=== PATIENT | male | born 1975 | race Caucasian/White ===

== ENCOUNTER 2020-01-11 22:51 | Emergency (ER) | payer SELFPAY ==
[2020-01-11] MEDS ORDERED: Sodium Chloride 0.9% 1,000 ML IV ONE ×2 (23:04→23:21)
[2020-01-11] MEDS ORDERED: MVI, Adult with Vitamin K 10 ML, Thiamine 100 MG, Folic Acid 1 MG in Sodium Chloride 0.... IV ONE ×4 (23:21)
--- NOTE | 2020-01-11 23:21 | EDM.PDOC ---
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 Patient not talking while in the ER Onset: Today Duration: Hour(s):, Day(s): Location: Reports: Abdomen Severity: Moderate Improves with: Reports: None Worsens with: Reports: None Associated Symptoms: Reports: No Other Symptoms, Nausea/Vomiting - Related Data Allergies Allergy/AdvReac Type Severity Reaction Status Date / Time Unable to Assess Allergy Unverified 01/11/20 23:08 Home Meds: Home Meds . [Unable to Verify Home Med List] 01/11/20 [History] ED ROS GENERAL - Review of Systems Review Of Systems: See Below Constitutional: Reports: No Symptoms HEENT: Reports: No Symptoms Respiratory: Reports: No Symptoms Cardiovascular: Reports: No Symptoms Endocrine: Reports: No Symptoms GI/Abdominal: Reports: No Symptoms : Reports: No Symptoms Musculoskeletal: Reports: No Symptoms Skin: Reports: No Symptoms Neurological: Reports: No Symptoms Psychiatric: Reports: No Symptoms Hematologic/Lymphatic: Reports: No Symptoms Immunologic: Reports: No Symptoms - Physical Exam Exam: See Below Exam Limited By: No Limitations General Appearance: Alert, WD/WN, No Apparent Distress Eye Exam: Bilateral Eye: Abnormal EOM, Abnormal Pupil, Normal Fundi, Normal Inspection Ears: Normal External Exam, Normal Canal, Hearing Grossly Normal, Normal TMs Nose: Normal Inspection, Normal Mucosa, No Blood Throat/Mouth: Normal Inspection, Normal Lips, Normal Teeth, Normal Gums, Normal Oropharynx, Normal Voice, No Airway Compromise Head Exam: Atraumatic, Normocephalic Neck: Normal Inspection, Supple, Non-Tender Respiratory/Chest: No Respiratory Distress, Lungs Clear, Normal Breath Sounds, No Accessory Muscle Use, Chest Non-Tender Cardiovascular: Normal Peripheral Pulses, Regular Rate, Rhythm, No Edema, No Gallop, No JVD, No Murmur GI/Abdominal: Normal Bowel Sounds, Soft, Non-Tender, No Organomegaly, No Distention, No Abnormal Bruit Neuro Exam (Abbreviated): Alert, Oriented, CN II-XII Intact, Normal Cognition, Normal Reflexes Back Exam: Normal Inspection, Full Range of Motion Extremities: Normal Inspection, Normal Range of Motion, Non-Tender Psychiatric: Normal Affect, Normal Mood Skin Exam: Warm, Dry, Intact, Normal Color, No Rash Course - Vital Signs Text/Narrative:: 44-year-old male initially intoxicated not wanting to talk. Patient's now states he feels much better and was just drinking and now wants to go home. Patient's vitals shows slight tachycardia 1 20-1 05. Patient awake alert and oriented. Patient's LFTs are elevated other than that patient appears to be in no acute distress. Will discharge the patient with acute alcohol intoxication. Last Recorded V/S: Last Vital Signs Temp 96.5 F L 01/11/20 22:55 Pulse 114 H 01/11/20 22:55 Resp 19 01/11/20 22:55 BP 148/100 H 01/11/20 22:55 Pulse Ox 96 01/11/20 22:55 - Orders/Labs/Meds Orders: Active Orders 24 hr Category Date Time Status MVI, Adult with Vitamin K [Infuvite Adult] 10 ml Med 01/11/20 23:21 Active Thiamine [Vitamin B-1] 100 mg Folic Acid 1 mg Sodium Chloride 0.9% [Normal Saline] 1,000 ml IV ONETIME Medication Orders Multivitamins/Minerals 10 ml/Thiamine HCl 100 mg/ Folic Acid 1 mg/ Sodium Chloride 1,011.2 mls @ 250 mls/hr IV ONETIME ONE Stop: 01/12/20 03:23 Last Admin: 01/12/20 00:38 Dose: 250 mls/hr Labs: Laboratory Tests 01/11/20 01/11/20 Range/Units 23:30 23:30 WBC 7.44 (4.0-11.0) K/uL RBC 4.92 (4.50-5.90) M/uL Hgb 16.5 (13.0-17.0) g/dL Hct 48.8 (38.0-50.0) % MCV 99.2 H (80.0-98.0) fL MCH 33.5 H (27.0-32.0) pg MCHC 33.8 (31.0-37.0) g/dL RDW Std Deviation 47.6 (28.0-62.0) fl RDW Coeff of Kenny 13 (11.0-15.0) % Plt Count 229 (150-400) K/uL MPV 9.30 (7.40-12.00) fL Neut % (Auto) 40.7 L (48.0-80.0) % Lymph % (Auto) 51.2 H (16.0-40.0) % [place] % (Auto) 6.5 (0.0-15.0) % Eos % (Auto) 1.5 (0.0-7.0) % Baso % (Auto) 0.1 (0.0-1.5) % Neut # (Auto) 3.0 (1.4-5.7) K/uL Lymph # (Auto) 3.8 H (0.6-2.4) K/uL [place] # (Auto) 0.5 (0.0-0.8) K/uL Eos # (Auto) 0.1 (0.0-0.7) K/uL Baso # (Auto) 0.0 (0.0-0.1) K/uL Nucleated RBC % 0.0 /100WBC Nucleated RBCs # 0 K/uL Sodium 147 (136-148) mmol/L Potassium 3.8 (3.5-5.1) mmol/L Chloride 108 H (98-107) mmol/L Carbon Dioxide 23.7 (21.0-32.0) mmol/L BUN 7 (7.0-18.0) mg/dL Creatinine 0.9 (0.8-1.3) mg/dL Est Cr Clr Drug Dosing TNP Estimated GFR (MDRD) > 60.0 ml/min Glucose 160 H (74-106) mg/dL Calcium 8.4 L (8.5-10.1) mg/dL Total Bilirubin 0.3 (0.2-1.0) mg/dL AST 233 H (15-37) IU/L ALT 371 H (14-63) IU/L Alkaline Phosphatase 176 H (46-116) U/L Troponin I < 0.050 (0.000-0.056) ng/mL Total Protein 7.6 (6.4-8.2) g/dL Albumin 4.3 (3.4-5.0) g/dL Globulin 3.3 (2.6-4.0) g/dL Albumin/Globulin Ratio 1.3 (0.9-1.6) Meds: Medications Generic Name Dose Route Start Last Admin Trade Name Fernanda PRN Reason Stop Dose Admin Multivitamins/Minerals 10 ml/ 1,011.2 mls @ 250 mls/hr 01/11/20 23:21 00:38 Thiamine HCl 100 mg/ Folic IV 01/12/20 03:23 250 mls/hr Acid 1 mg/ Sodium Chloride ONETIME ONE Administration Discontinued Medications Generic Name Dose Route Start Last Admin Trade Name Fernanda PRN Reason Stop Dose Admin Sodium Chloride 1,000 mls @ 999 mls/hr 01/11/20 23:04 01/11/20 23:09 Normal Saline IV 01/12/20 00:04 999 mls/hr .BOLUS ONE Administration Sodium Chloride 1,000 mls @ 1,000 mls/hr 01/11/20 23:21 Normal Saline IV 01/12/20 00:20 .Bolus ONE Departure - Departure Time of Disposition: 00:43 Disposition: Home, Self-Care 01 Condition: Good Clinical Impression: Alcohol abuse - Discharge Information Instructions: Alcohol Use Disorder, Binge-Drinking Information, Adult Forms: ED Department Discharge Sepsis Event Note - Evaluation Sepsis Screening Result: No Definite Risk - Focused Exam Vital Signs: Vital Signs Temp Pulse Resp BP Pulse Ox 01/11/20 22:55 96.5 F L 114 H 19 148/100 H 96 Date Exam was Performed: 01/12/20 Time Exam was Performed: 00:40 - My Orders Last 24 Hours: My Active Orders 01/11/20 23:21 MVI, Adult with Vitamin K [Infuvite Adult] 10 ml Thiamine [Vitamin B-1] 100 mg Folic Acid 1 mg Sodium Chloride 0.9% [Normal Saline] 1,000 ml IV ONETIME - Assessment/Plan Last 24 Hours: My Active Orders 01/11/20 23:21 MVI, Adult with Vitamin K [Infuvite Adult] 10 ml Thiamine [Vitamin B-1] 100 mg Folic Acid 1 mg Sodium Chloride 0.9% [Normal Saline] 1,000 ml IV ONETIME
[2020-01-12 00:04] LABS: BLOOD UREA NITROGEN,BUN 7 mg/dL (7.0-18.0); CARBON DIOXIDE,CO2 23.7 mmol/L (21.0-32.0); CHLORIDE,CL 108 mmol/L (98-107); GLUCOSE RANDOM 160 mg/dL (74-106); POTASSIUM,K 3.8 mmol/L (3.5-5.1); SODIUM,NA 147 mmol/L (136-148)
== END 2020-01-12 00:50 | disposition home or self-care (01) ==
LOC: MW.ED 22:51
DX: F10.129 Alcohol abuse with intoxication, unspecified (principal)
CPT/HCPCS: 36415; 80053; 84484; 85025; 96374; 99284; J3411; J7030; 99283

== ENCOUNTER 2022-04-13 12:20 | Emergency (ER) | payer SELFPAY ==
[2022-04-13] MEDS ORDERED: Sodium Chloride 0.9% 1,000 ML IV ONE (12:37)
[2022-04-13] MEDS ORDERED: LORazepam 2 MG/ML SDV IVPUSH ONE ×2 (12:37→13:40)
[2022-04-13 13:27] LABS: BLOOD UREA NITROGEN,BUN 7 mg/dL (7.0-18.0); CARBON DIOXIDE,CO2 25.9 mmol/L (21.0-32.0); CHLORIDE,CL 101 mmol/L (98-107); ESTIMATED GFR 93 mL/min (>60); GLUCOSE RANDOM 157 mg/dL (74-106); POTASSIUM,K 3.6 mmol/L (3.5-5.1); SODIUM,NA 142 mmol/L (136-148)
[2022-04-13] MEDS: Sodium Chloride 0.9% 1,000 ML IV ONE ×2 (13:46→14:27)
== END 2022-04-13 14:28 | disposition home or self-care (01) ==
LOC: MW.ED 12:20
DX: F10.10 Alcohol abuse, uncomplicated (principal); I10 Essential (primary) hypertension; Z79.899 Other long term (current) drug therapy
CPT/HCPCS: 36415; 80053; 80307; 85025; 96361; 96374; 96376; 99284; J2060; J7030

== ENCOUNTER 2022-11-13 20:12 | Emergency (ER) | payer OTHER, MEDICAID ==
[2022-11-13] MEDS ORDERED: Sodium Chloride 0.9% 10 ML Syringe FLUSH PRN (20:36)
[2022-11-13] MEDS ORDERED: Sodium Chloride 0.9% 2.5 ML Syringe FLUSH PRN (20:36)
[2022-11-13] MEDS ORDERED: Folic Acid 1 MG/0.2 ML UD Syringe IV STA (20:37)
[2022-11-13] MEDS ORDERED: Thiamine 200 MG/2 ML MDV IVPUSH ONE (20:37)
[2022-11-13] MEDS ORDERED: Sodium Chloride 0.9% 1,000 ML IV ONE (20:44)
[2022-11-13] MEDS ORDERED: Ondansetron 4 MG/2 ML SDV IVPUSH ONE (21:26)
[2022-11-13 21:31] LABS: CARBON DIOXIDE,CO2 21.8 mmol/L (21.0-32.0); POTASSIUM,K 4.1 mmol/L (3.5-5.1)
[2022-11-13 22:08] LABS: CORONAVIRUS COVID-19 NAA NEGATIVE (NEGATIVE); INFLUENZA A NAA NEGATIVE (NEGATIVE); INFLUENZA B NAA NEGATIVE (NEGATIVE)
[2022-11-13] MEDS ORDERED: LORazepam 2 MG/ML SDV IVPUSH ONE (22:48)
== END 2022-11-13 23:10 | disposition home or self-care (01) ==
LOC: MW.ED 20:12
DX: F10.10 Alcohol abuse, uncomplicated (principal); I10 Essential (primary) hypertension; Z79.899 Other long term (current) drug therapy; Z20.822 Contact with and (suspected) exposure to COVID-19
CPT/HCPCS: 0240U; 36415; 80053; 80307; 83735; 85025; 96361; 96374; 96375; 99284; J2060; J3411; J3490; J7030

== ENCOUNTER 2023-02-21 11:21 | Emergency (ER) | payer OTHER, MEDICAID ==
[2023-02-21] MEDS: LORazepam 2 MG/ML SDV IVPUSH ONE (11:48)
[2023-02-21] MEDS: Sodium Chloride 0.9% 1,000 ML IV ONE ×2 (11:48→11:49)
[2023-02-21] MEDS: Haloperidol Lactate 5 MG/ML SDV IM ONE (11:48)
[2023-02-21] MEDS: Thiamine 200 MG/2 ML MDV IVPUSH ONE (12:02)
[2023-02-21] MEDS: Folic Acid 1 MG/0.2 ML UD Syringe IV STA (12:18)
[2023-02-21 12:26] LABS: BASOPHILS PERCENT AUTO 0.3 % (0.0-1.5); EOSINOPHILS ABSOLUTE AUTO 0.1 K/uL (0.0-0.7); EOSINOPHILS PERCENT AUTO 0.5 % (0.0-7.0); HEMATOCRIT 45.1 % (38.0-50.0); HEMOGLOBIN 15.8 g/dL (13.0-17.0); LYMPHOCYTES ABSOLUTE AUTO 3.5 K/uL (0.6-2.4); LYMPHOCYTES PERCENT AUTO 35.8 % (16.0-40.0); MEAN CORPUSCULAR VOLUME 91.5 fL (80.0-98.0); MONOCYTES ABSOLUTE AUTO 0.4 K/uL (0.0-0.8); MONOCYTES PERCENT AUTO 4.1 % (0.0-15.0); NEUTROPHILS ABSOLUTE AUTO 5.7 K/uL (1.4-5.7); NEUTROPHILS PERCENT AUTO 59.3 % (48.0-80.0); NRBC ABSOLUTE 0 K/uL; PLATELET COUNT,PLT 200 K/uL (150-400); RED BLOOD CELL COUNT 4.93 M/uL (4.50-5.90); WHITE BLOOD CELL COUNT,WBC 9.64 K/uL (4.0-11.0)
[2023-02-21 12:40] LABS: A/G RATIO 1.4 (0.9-1.6); ALBUMIN 4.6 g/dL (3.4-5.0); BILIRUBIN TOTAL 0.5 mg/dL (0.2-1.0); CALCIUM 8.9 mg/dL (8.5-10.1); CARBON DIOXIDE,CO2 23.8 mmol/L (21.0-32.0); CREATININE 0.7 mg/dL (0.8-1.3); EST CRCL DRUG DOSING (CG) 141.65 mL/min; MAGNESIUM 1.9 mg/dL (1.8-2.4); POTASSIUM,K 3.6 mmol/L (3.5-5.1); PROTEIN TOTAL,TP 7.8 g/dL (6.4-8.2)
[2023-02-21 12:42] LABS: INR 1.03 (0.86-1.11); PTT,PARTIAL THROMBOPLSTIN TIME 29.4 SEC (23.9-30.7)
[2023-02-21 12:53] LABS: APPEARANCE,URINE CLEAR; BILIRUBIN,URINE NEGATIVE (NEGATIVE); COLOR,URINE YELLOW; GLUCOSE,URINE NEGATIVE (NEGATIVE); KETONES,URINE NEGATIVE (NEGATIVE); LEUKOCYTE ESTERASE,URINE NEGATIVE (NEGATIVE); NITRITE,URINE NEGATIVE (NEGATIVE); OCCULT BLOOD,URINE NEGATIVE (NEGATIVE); PROTEIN,URINE NEGATIVE (NEGATIVE); UROBILINOGEN,URINE 0.2 EU/dL (<2.0)
[2023-02-21 13:07] LABS: AMPHETAMINES SCREEN, URINE NEGATIVE (CUTOFF=500); BARBITURATE SCREEN,URINE NEGATIVE (CUTOFF=200); BENZODIAZEPINES SCREEN,URINE NEGATIVE (CUTOFF=150); BUPRENORPHINE SCREEN,URINE NEGATIVE (CUTOFF=10); METHADONE SCREEN, URINE NEGATIVE (CUTOFF=200); METHAMPHETAMINES SCREEN, URINE NEGATIVE (CUTOFF=500); OXYCODONE SCREEN,URINE NEGATIVE (CUT0FF=100); PCP SCREEN,URINE NEGATIVE (CUTOFF=25); PROPOXYPHENE SCREEN,URINE NEGATIVE (CUTOFF=300); THC SCREEN,URINE 20 NG/ML NEGATIVE (CUTOFF=50)
[2023-02-21 13:38] LABS: LACTIC ACID 2.5 mmol/L (0.4-2.0)
== END 2023-02-21 17:54 | disposition home or self-care (01) ==
LOC: MW.ED 11:21
DX: F10.10 Alcohol abuse, uncomplicated (principal); I10 Essential (primary) hypertension; Y90.8 Blood alcohol level of 240 mg/100 ml or more; Z79.899 Other long term (current) drug therapy
CPT/HCPCS: 36415; 80053; 80305; 80307; 81003; 82947; 83605; 83690; 83735; 84484; 85025; 85610; 85730; 93005; 96361; 96372; 96374; 96375; 99285; J1630; J2060; J3411; J7030; J3490